=== PATIENT | male | born 1960 | race Caucasian/White ===

== ENCOUNTER 2017-08-15 06:52 | Emergency (ER) | payer OTHER ==
[~2017-08-15] VITALS: Ht 182.9 cm; Wt 121.0 kg
[~2017-08-15 06:52] MED LIST: ACT/45 PO; ASPI81TA28 PO; CARV3.122 PO; CHOL20009 PO; CYCL10TA6 PO; GLIP-199 PO; LOVA20TA4 PO; LVMI SQ; METF-384 PO; NXM/40 PO; PROB1CAP54 PO; SILD100T PO; VALS320T PO
[2017-08-15 06:59] VITALS: TEMP 37.1; Ht 182.9 cm; Wt 121.0 kg
[2017-08-15] MEDS ORDERED: SULF800T23 PO (08:00)
[2017-08-15] MEDS ORDERED: CEPH500C2 PO (08:00)
[2017-08-15 08:08] VITALS: BP 163/105; PULSE 80; O2SAT 97
--- NOTE | 2017-08-15 08:21 | EMERGENCY ROOM VISIT NOTE ---
ED Visit Note First contact with patient: 07:08 CHIEF COMPLAINT: I think I may have an infection on my buttocks. HISTORY OF PRESENT ILLNESS: Mr. Dowling is an 56-year-old white male who ambulates into the ED accompanied by his complaining of right proximal buttocks pain. Historically patient reports in June of this year he had an I&D procedure done for a left perirectal abscess. Procedure was performed by Dr. Donato, colorectal surgeon, from [facility]. Patient reports after the procedure was completed he was told by the surgeon that he could possibly have a fistula and developed further abscesses. Since the drainage procedure and a 10 day course of antibiotics he has been symptom-free since that time. He reports he felt a lump on the proximal right gluteal fold yesterday and reports this felt similar to his previous abscess. He attempted to make a appointment with his colorectal surgeon but was unsuccessful. He report for the first 24 hours before the onset of rectal pain he had some mild aches but no enrrique fevers. His rectal pain started yesterday. He describes it as a pinching sensation. He rates his discomfort 1/10. His pain is nonradiating. Pain worsens with mild palpation of the right proximal gluteal area and bowel movements. His pain is mildly relieved with ibuprofen. Associated with his symptoms he does report he has a history of hemorrhoids and noted a small amount of bright red blood on the toilet tissue yesterday but no purulent drainage and that has not returned today. He denies fevers, chills, other skin eruptions, other skin color changes, upper respiratory tract symptoms, chest pain, shortness of breath, abdominal pain, nausea, vomiting, decreased appetite, black/tarry stools, urinary symptoms, hematuria. REVIEW OF SYSTEMS: As noted above in History of Present Illness; all body systems reviewed and found to be negative unless noted above otherwise. PAST MEDICAL HISTORY: As noted above, diabetes, coronary artery disease and hypertension. CURRENT MEDICATION: Medications Dose Route/Sig Max Daily Dose Days Date Category Flexeril (Cyclobenzaprine Hcl) 10 Mg Tab 10 Mg PO TID PRN 08/14/17 Reported Mevacor (Lovastatin) 20 Mg Tab 20 Mg PO QPM 08/14/17 Reported Glucophage (Metformin Hcl) 1,000 Mg Tab 1,000 Mg PO BID 08/14/17 Reported Actos (Pioglitazone Hcl) 45 Mg Tab 45 Mg PO QAM 08/14/17 Reported Aspirin Ec (Aspirin) 81 Mg Tab 81 Mg PO QAM 08/14/17 Reported Diovan (Valsartan) 320 Mg Tab 320 Mg PO QPM 08/14/17 Reported Acidophilus (Probiotic Product) 1 Cap Cap 1 Cap PO QAM 08/14/17 Reported Levemir (Insulin Detemir) 100 Units/Ml Inj 95 Units SQ HS 08/14/17 Reported Vitamin D (Cholecalciferol) 2,000 Unit Tab 2,000 Units PO QAM 08/14/17 Reported Viagra (Sildenafil Citrate) 100 Mg Tab 100 Mg PO PRN 08/14/17 Reported Nexium (Esomeprazole Magnesium) 40 Mg Capcr 40 Mg PO QAM 08/14/17 Reported Coreg (Carvedilol) 3.125 Mg Tab 3.125 Mg PO BID 08/14/17 Reported Glipizide Er (Glipizide) 10 Mg Tab 10 Mg PO QAM 08/14/17 Reported ALLERGIES TO MEDICATION: Patient denies. SOCIAL HISTORY: Patient is currently employed; he feels safe in his home environment; he denies tobacco use and admits to social alcohol use. PHYSICAL EXAM: Vital Signs: Date Time Temp Pulse Resp B/P (MAP) Pulse Ox O2 Delivery O2 Flow Rate FiO2 08/15/17 06:59 37.1 85 18 167/96 97 Room Air General: 56 year-old white male in no acute distress, nontoxic appearing, afebrile and hemodynamically stable. Neurological: Awake, alert and oriented to person, place and time. Answering questions appropriately and following commands. Skin: Warm, dry and pink. Gluteal Fold: Over the upper portion on the right of the fold patient has a small 2-3 mm area of erythema with some dry skin consistent with a possible rupture of a small skin abscess; initially questioned patient show me the tip of his finger which was approximately 6-7 mm in size and felt that was the size of the initial lesion. This area is not indurated or fluctuant. There is no draining or lymphangitis. The skin is warm but does not feel any warmer than the rest of the rectal area. There is no lesions or drainage around the rectum and the external rectum is nontender. Thorax: Lungs sounds are clear to auscultation and equal bilaterally with symmetrical chest wall movement. Abdomen: Flat, soft and nontender. Positive bowel sounds in all quadrants. No guarding or rigidity. ED COURSE: Patient is assessed as noted above. Patient's medication list was reviewed. Patient was educated about his condition and instructed on his treatment plan; he verbalized understanding and agreement with this plan. CLINICAL IMPRESSION: Abscess of the right gluteal cleft.. DISPOSITION: Patient discharged to home in stable condition accompanied by his ; prior to departure he was reassessed and subjectively reported he was feeling the same. PLAN: Patient is encouraged alternate ibuprofen and acetaminophen every 3 hours as needed for pain. Patient was placed on a seven-day course of 500 mg of Keflex 4 times a day and Bactrim DS 2 times a day. Patient reports he was leaving the country until ; and approximately 48 hours. He was encouraged to follow-up with his PCP or return to the ED for recheck at that time. Additionally patient reports she has an appointment with his colorectal surgeon next Monday for possible colonoscopy. Patient was encouraged to return to the ED sooner for worsening/uncontrolled pain, increasing redness/swelling, puslike drainage, grossly bloody stools and/ or purulent drainage from the rectum or any new/concerning symptoms.
== END 2017-08-15 08:09 | disposition home or self-care (01) ==
LOC: C.EDB 06:54
DX: L02.31 Cutaneous abscess of buttock (principal); E11.9 Type 2 diabetes mellitus without complications; I25.10 Atherosclerotic heart disease of native coronary artery without angina pectoris; I10 Essential (primary) hypertension

== ENCOUNTER → 2017-08-21 | Day surgery (SDC) | payer OTHER ==
[2017-08-14 09:04] VITALS: Ht 182.9 cm; Wt 118.2 kg
[~2017-08-21] VITALS: Ht 182.9 cm; Wt 118.2 kg
[~2017-08-21] MED LIST changes: +CEPH500C2 PO; +FENTANYL CITRATE INJ 50 MCG/1 ML 2 ML VIAL ONE; +LIDOCAINE HCL 2% 2 ML VIAL (20MG/ML) ONE; +MIDAZOLAM HCL 1 MG/ML 2ML VIAL ONE; +PROPOFOL IV EMULSION 10 MG/ML 20 ML VIAL IV ONE; +SULF800T23 PO
--- NOTE | 2017-08-21 14:03 | Endo History and Physical ---
History & Physical Date of Service: Aug 21, 2017. Chief Complaint: perirectal abscess Referring Physician: Dr.Thomas Jackson and History of Present Illness For colonoscopy Past Surgical History Hx Cardiac Surgery: Yes (CARDIAC CATH NO STENTS) Hx Internal Defibrillator: No Hx Pacemaker: No Hx Abdominal Surgery: Yes ([facility]) Hx of Implantable Prosthesis: No Hx Post-Op Nausea and Vomiting: No Hx Cancer Surgery: No Hx Thoracic Surgery: No Hx Orthopedic: Yes (BACK SURGERY; RIGHT ARM ORIF) Hx Urinary Tract Surgery: No Family History IBD Social History Smoking Status: Former Smoker Hx Substance Use: No Hx Alcohol Use: Yes (4-5 DRINKS A WEEK) Allergies Coded Allergies: No Known Allergies (Verified , 08/21/17) Current Medications Reported Home Medications Medications Dose Route/Sig Max Daily Dose Days Date Category Keflex (Cephalexin Monohydrate) 500 Mg Cap 500 Mg PO QID 7 08/15/17 Rx Bactrim Ds 800MG/160MG (Trimethoprim/Sulfamethoxazole) Tab 1 Tab PO BID 7 08/15/17 Rx Flexeril (Cyclobenzaprine Hcl) 10 Mg Tab 10 Mg PO TID PRN 08/14/17 Reported Mevacor (Lovastatin) 20 Mg Tab 20 Mg PO QPM 08/14/17 Reported Glucophage (Metformin Hcl) 1,000 Mg Tab 1,000 Mg PO BID 08/14/17 Reported Actos (Pioglitazone Hcl) 45 Mg Tab 45 Mg PO QAM 08/14/17 Reported Aspirin Ec (Aspirin) 81 Mg Tab 81 Mg PO QAM 08/14/17 Reported Diovan (Valsartan) 320 Mg Tab 320 Mg PO QPM 08/14/17 Reported Acidophilus (Probiotic Product) 1 Cap Cap 1 Cap PO QAM 08/14/17 Reported Levemir (Insulin Detemir) 100 Units/Ml Inj 95 Units SQ HS 08/14/17 Reported Vitamin D (Cholecalciferol) 2,000 Unit Tab 2,000 Units PO QAM 08/14/17 Reported Viagra (Sildenafil Citrate) 100 Mg Tab 100 Mg PO PRN 08/14/17 Reported Nexium (Esomeprazole Magnesium) 40 Mg Capcr 40 Mg PO QAM 08/14/17 Reported Coreg (Carvedilol) 3.125 Mg Tab 3.125 Mg PO BID 08/14/17 Reported Glipizide Er (Glipizide) 10 Mg Tab 10 Mg PO QAM 08/14/17 Reported Vital Signs Weight (Kilograms): 118.18 Height (Feet): 6 Height (Inches): 0 Date Time Temp Pulse Resp B/P (MAP) Pulse Ox O2 Delivery O2 Flow Rate FiO2 08/21/17 13:16 36.4 85 16 157/86 (109) 96 Room Air Physical Exam General Appearance: WD/WN Respiratory/Chest: Respiratory effort: no dyspnea Cardiovascular: Heart Auscultation: RRR Abdomen: Inspection & Palpation: soft Assessment and Plan perirectal abscess for colonoscopy
--- NOTE | 2017-08-21 14:25 | Discharge Instructions ---
Endoscopy Patient Instructions Date / Procedure(s) Performed Aug 21, 2017. Colonoscopy Allergy Information Coded Allergies: No Known Allergies (Verified , 08/21/17) Discharge Date / Findings Aug 21, 2017. diverticulosis Medication Instructions Stopped Medication(s): stopped Metformin Monday.took ASA yesterday Restart Stopped Medication(s): Resume meds Reported Home Medications Medications Dose Route/Sig Max Daily Dose Days Date Category Keflex (Cephalexin Monohydrate) 500 Mg Cap 500 Mg PO QID 7 08/15/17 Rx Bactrim Ds 800MG/160MG (Trimethoprim/Sulfamethoxazole) Tab 1 Tab PO BID 7 08/15/17 Rx Flexeril (Cyclobenzaprine Hcl) 10 Mg Tab 10 Mg PO TID PRN 08/14/17 Reported Mevacor (Lovastatin) 20 Mg Tab 20 Mg PO QPM 08/14/17 Reported Glucophage (Metformin Hcl) 1,000 Mg Tab 1,000 Mg PO BID 08/14/17 Reported Actos (Pioglitazone Hcl) 45 Mg Tab 45 Mg PO QAM 08/14/17 Reported Aspirin Ec (Aspirin) 81 Mg Tab 81 Mg PO QAM 08/14/17 Reported Diovan (Valsartan) 320 Mg Tab 320 Mg PO QPM 08/14/17 Reported Acidophilus (Probiotic Product) 1 Cap Cap 1 Cap PO QAM 08/14/17 Reported Levemir (Insulin Detemir) 100 Units/Ml Inj 95 Units SQ HS 08/14/17 Reported Vitamin D (Cholecalciferol) 2,000 Unit Tab 2,000 Units PO QAM 08/14/17 Reported Viagra (Sildenafil Citrate) 100 Mg Tab 100 Mg PO PRN 08/14/17 Reported Nexium (Esomeprazole Magnesium) 40 Mg Capcr 40 Mg PO QAM 08/14/17 Reported Coreg (Carvedilol) 3.125 Mg Tab 3.125 Mg PO BID 08/14/17 Reported Glipizide Er (Glipizide) 10 Mg Tab 10 Mg PO QAM 08/14/17 Reported Provider Instructions Activity Restrictions - No exercising or heavy lifting for 24 hours. - Do not drink alcohol the day of the procedure. - Do not drive a car or operate machinery until the day after the procedure. - Do not make any important decisions or sign important papers in 24 hours after the procedure. Following Day: - Return to full activity which may include returning to work/school. Diet Start your diet with liquids and light foods (jello, soup, juice, toast). Then eat your usual diet if not nauseated. Treatment For Common After Affects For mild abdominal pain, bloating, or excessive gas: - Rest - Eat lightly - Lie on right side Follow-Up Information Follow-up with Dr.Thomas Jackson and as scheduled Anesthesia Information What You Should Know You have had a procedure that required some medicine to reduce anxiety and discomfort. This treatment is called moderate sedation. After receiving the treatment, you may be sleepy, but you will be able to breathe on your own. The effects of the treatment may last for several hours. Follow these instructions along with Activity/Diet recommendations noted above: * Do NOT do anything where dizziness or clumsiness would be dangerous. * Rest quietly at home today, then you can be up and about tomorrow. * Have a responsible person stay with you the rest of today. * You may have had an I.V. today. If so, you may take the dressing off later today. Recommendations Call your doctor if: * Trouble breathing * Continuous vomiting for more than 24 hours * Temperature above 101 degrees * Severe abdominal pain or bloating * Pain not relieved by pain medicine ordered * There is increased drainage or redness from any incision * A large amount of rectal bleeding greater than 2-3 tablespoons. (If you had a polyp/s removed or have hemorrhoids, a small amount of blood - from the rectum is to be expected.) * You have any unanswered questions or concerns. IN THE EVENT OF A SERIOUS EMERGENCY, GO TO THE NEAREST EMERGENCY ROOM Your discharge instructions were prepared by provider Gustavo Brown. Patient Instructions Signature Page Luke Dowling Patient (or Guardian) Signature/Date: I have read and understand the instructions given to me by my caregivers. Caregiver/RN/Doctor Signature/Date: The above-named patient and/or guardian has received patient instructions on this date. + Original Patient Signature Page (only) stays with chart. Please make copy for patient.
--- NOTE | 2017-08-21 14:30 | GI REPORT ---
Procedure Date: 08/21/2017 2:03 PM Procedure: Colonoscopy Indications: Perirectal abscess Medicines: Fentanyl 100 micrograms IV, Midazolam 2 mg IV, Propofol total dose 150 mg IV, Lidocaine 40 mg IV Complications: No immediate complications. Estimated Blood Loss: Estimated blood loss: none. Procedure: Pre-Anesthesia Assessment: - Prior to the procedure, a History and Physical was performed, and patient medications, allergies and sensitivities were reviewed. The patient's tolerance of previous anesthesia was reviewed. - The risks and benefits of the procedure and the sedation options and risks were discussed with the patient. All questions were answered and informed consent was obtained. After I obtained informed consent, the scope was passed under direct vision. Throughout the procedure, the patient's blood pressure, pulse, and oxygen saturations were monitored continuously. The scope was introduced through the anus and advanced to the terminal ileum. The colonoscopy was performed without difficulty. The patient tolerated the procedure well. The quality of the bowel preparation was excellent. Findings: The perianal and digital rectal examinations were normal. A few diverticula were found in the sigmoid colon. The terminal ileum appeared normal. No sign of Crohn's disease. Impression: - Diverticulosis in the sigmoid colon. - The examined portion of the ileum was normal. - No specimens collected. Recommendation: - Discharge patient to home (ambulatory). - Continue present medications. - Return to referring physician as previously scheduled. Gustavo Brown M.D. Gustavo Brown MD 08/21/2017 2:29:45 PM This report has been signed electronically. Note Initiated On: 08/21/2017 2:03 PM I attest to the content of the Intraoperative Record and orders documented therein, exceptions below
[2017-08-21 14:59] VITALS: BP 146/102; PULSE 71; O2SAT 94
--- NOTE | 2017-08-21 15:31 | Anesthesiology Progress Note ---
Anesthesia Post Op Note Date & Time Aug 21, 2017 at 15:30 Vital Signs Pain Intensity: 0 Vital Signs Past 12 Hours Date Time Temp Pulse Resp B/P (MAP) Pulse Ox O2 Delivery O2 Flow Rate FiO2 08/21/17 14:59 71 20 146/102 (117) 94 Room Air 08/21/17 14:45 75 20 149/92 (111) 95 Room Air 08/21/17 14:30 88 20 128/81 (97) 93 Room Air 08/21/17 13:16 36.4 85 16 157/86 (109) 96 Room Air Notes Mental Status: alert / awake / arousable, participated in evaluation Pt Amnestic to Procedure: Yes Nausea / Vomiting: adequately controlled Pain: adequately controlled Airway Patency, RR, SpO2: stable & adequate BP & HR: stable & adequate Hydration State: stable & adequate Anesthetic Complications: no major complications apparent
== END | disposition home or self-care (01) ==
LOC: C.GI 12:47
PROVIDERS: ATTEND Internal Medicine Gastroenterology
DX: K61.1 Rectal abscess (principal); K57.30 Diverticulosis of large intestine without perforation or abscess without bleeding; E11.9 Type 2 diabetes mellitus without complications; I25.2 Old myocardial infarction; G47.33 Obstructive sleep apnea (adult) (pediatric); Z90.49 Acquired absence of other specified parts of digestive tract; Z98.890 Other specified postprocedural states; Z87.891 Personal history of nicotine dependence; Z79.82 Long term (current) use of aspirin; Z79.4 Long term (current) use of insulin; Z79.899 Other long term (current) drug therapy